=== PATIENT | female | born 1940 | race Caucasian/White ===

== ENCOUNTER 2017-01-10 07:58 | Day surgery (SDC) | payer MEDICARE, OTHER ==
[~2017-01-10 07:58] MED LIST: PROPOFOL INJ 200 MG/20 ML VIAL IV ONE
[2017-01-10 09:43] VITALS: BP 139/75
--- NOTE | 2017-01-10 13:05 | Operative Report ---
Operative Report DATE OF SURGERY: 01/10/17 Operative Report: The risks, benefits and alternatives of the procedure including risks of bleeding, perforation requiring surgery are explained to the patient detail and informed consent is obtained. Patient was taken back to the endoscopy suite and placed in the left, lateral decubital position. Timeout was called. Propofol medications administered. A rectal examination was done which did not reveal any masses, tears or fissures. An Olympus video scope was inserted into the patient's rectum. The scope was then carefully guided all the way to the cecum. The cecum was identified by the usual anatomical landmarks including the ileocecal valve as well as the appendiceal office. Prep was good. Photodocumentation was obtained. The scope was then sequentially pulled back via the various segments of the colon including the ascending colon, hepatic flexure, transverse colon, splenic flexure, descending colon and finally to the rectosigmoid portions of the colon. Retroflexion maneuver was performed. The risks benefits and alternatives of the procedure explained to the patient in detail and informed consent is obtained. A GIF Olympus video scope was inserted into the patient's mouth and hypopharynx, the esophagus is identified intubated and insufflated, the scope was then advanced through the esophagus stomach and duodenum, retroflexion maneuver is done, the esophagus stomach and first and second portions of the duodenum examined PREOPERATIVE DIAGNOSIS: Melena or dark stool. Change in bowel habits POSTOPERATIVE DIAGNOSIS: Dark bilious material noted in the colon noted and stop green in color. 2 colon polyps that I removed via snare polypectomy. 1 in the descending colon and the other in the hepatic flexure area. Diverticulosis. Internal hemorrhoids. Gastritis status post biopsy rule out Helicobacter pylori OPERATION: Colonoscopy with snare polypectomy. EGD with biopsy SURGEON: DONNA SHIN ANESTHESIA: LMAC TISSUE REMOVED OR ALTERED: As noted above. COMPLICATIONS: None. ESTIMATED BLOOD LOSS: None. INTRAOPERATIVE FINDINGS: As described above. PROCEDURE: Patient tolerated the procedure well. No immediate postprocedure complications are noted. Patient discharged in good condition. Discharge date 01/10/2017. Discharge diet: Regular. Discharge activity: Regular. 2-3 week follow-up to discuss findings. Patient is instructed to call the office or proceed to the emergency room should there be any further problems or questions. We will wait on pathology. 5 year surveillance colonoscopy.
== END 2017-01-10 09:40 | disposition home or self-care (01) ==
LOC: END 07:58
PROVIDERS: ATTEND Internal Medicine Gastroenterology
PROC: 0DBL8ZX Excision of Transverse Colon, Via Natural or Artificial Opening Endoscopic, Diagnostic (ICD-10-PCS; 2017-01-10)
PROC: 0DB68ZX Excision of Stomach, Via Natural or Artificial Opening Endoscopic, Diagnostic (ICD-10-PCS; principal; 2017-01-10 08:30)
PROC: 0DBK8ZX Excision of Ascending Colon, Via Natural or Artificial Opening Endoscopic, Diagnostic (ICD-10-PCS; 2017-01-10 08:30)
DX: K57.30 Diverticulosis of large intestine without perforation or abscess without bleeding (principal); K64.8 Other hemorrhoids; K29.50 Unspecified chronic gastritis without bleeding; D12.2 Benign neoplasm of ascending colon; D12.3 Benign neoplasm of transverse colon; K92.1 Melena; E78.00 Pure hypercholesterolemia, unspecified; I12.9 Hypertensive chronic kidney disease with stage 1 through stage 4 chronic kidney disease, or unspecified chronic kidney disease; E11.22 Type 2 diabetes mellitus with diabetic chronic kidney disease; N18.3 Chronic kidney disease, stage 3 (moderate); M19.90 Unspecified osteoarthritis, unspecified site; Z79.82 Long term (current) use of aspirin; Z79.899 Other long term (current) drug therapy
CPT/HCPCS: 43239; 45385; 88305 ×2; J2704; 740

== ENCOUNTER 2017-01-12 13:06 | Emergency (ER) | payer MEDICARE, OTHER ==
--- NOTE | 2017-01-12 13:38 | ER Document Report ---
ED Medical Screen (RME) - General Chief Complaint: Abdominal Pain Stated Complaint: ABDOMINAL PAIN Time Seen by Provider: 01/12/17 13:33 Mode of Arrival: Wheelchair Information source: Patient Notes: 76 yo female with constant sharp left flank pain for 3 weeks that radiates to front and across to the right back., Nothing makes it worse or better. EGD and colonoscopy dr. stokes tuesday or this week. Pain is sharper than the original dull pain. Hx stage 3 renal disease, kidney stone, diverticulitis seen on colonoscopy (no antibiotics), gastritis, arthritis, bursitis. [facility] October for hypertension, dx a fib, CHF, hematoma left abdomen from the anticoagulant shots. TRAVEL OUTSIDE OF THE [place] IN LAST 30 DAYS: No - Related Data Allergies/Adverse Reactions: sulfamethoxazole [From Bactrim] Allergy (Severe, Verified 01/12/17 13:10) HIVES, RASH trimethoprim [From Bactrim] Allergy (Severe, Verified 01/12/17 13:10) HIVES, RASH amoxicillin [From Augmentin] Allergy (Intermediate, Verified 01/12/17 13:10) Hives amoxicillin trihydrate [From Augmentin] Allergy (Intermediate, Verified 13:10) Nausea clavulanic acid [From Augmentin] Allergy (Intermediate, Verified 01/12/17 13:10) Hives doxycycline [Doxycycline] Allergy (Intermediate, Verified 01/12/17 13:10) HIVES, RASHES levofloxacin [From Levaquin] Allergy (Intermediate, Verified 01/12/17 13:10) Hives morphine [Morphine] Allergy (Intermediate, Verified 01/12/17 13:10) Hallucinations Potassium Clavulanate * [From Augmentin] Allergy (Intermediate, Verified 13:10) Nausea NSAIDS (Non-Steroidal Anti-Inflamma [Nsaids] Allergy (Mild, Verified 01/12/17 13 :10) Hepatic dysfunction erythromycin lactobionate [From Erythrocin] Adverse Reaction (Severe, Verified 01/12/17 13:10) FLU LIKE SYMPTOMS imipramine HCl [From Tofranil] Adverse Reaction (Intermediate, Verified 13:10) HEARTRACE codeine [Codeine] Adverse Reaction (Mild, Verified 01/12/17 13:10) "DOESN'T FEEL RIGHT" Past Medical History - Past Medical History Cardiac Medical History: Reports: Hx Coronary Artery Disease - A FIB , Hx Hypertension Denies: Hx Heart Attack Pulmonary Medical History: Denies: Hx Asthma, Hx Bronchitis, Hx COPD, Hx Pneumonia Neurological Medical History: Denies: Hx Cerebrovascular Accident, Hx Seizures Endocrine Medical History: Reports: Hx Diabetes Mellitus Type 2 - "boarderline" no medication Renal/ Medical History: Denies: Hx Peritoneal Dialysis GI Medical History: Reports: Hx Diverticulitis, Hx Gastroesophageal Reflux Disease Musculoskeltal Medical History: Reports Hx Arthritis - GENERALIZED Past Surgical History: Reports: Hx Appendectomy, Hx Kidney (Renal Surgery), Hx Orthopedic Surgery - back, rotator, Hx Tonsillectomy, Hx Tubal Ligation. Denies : Hx Hysterectomy - Immunizations Hx Diphtheria, Pertussis, Tetanus Vaccination: Yes Physical Exam - Vital signs Vitals: Temp Pulse Resp BP Pulse Ox 97.7 F 80 22 H 147/94 H 97 01/12/17 13:13 01/12/17 13:13 01/12/17 13:13 01/12/17 13:13 01/12/17 13:13 Course - Vital Signs Vital signs: Temp Pulse Resp BP Pulse Ox 97.7 F 80 22 H 147/94 H 97 01/12/17 13:13 01/12/17 13:13 01/12/17 13:13 01/12/17 13:13 01/12/17 13:13
[2017-01-12 14:27] LABS: ABSOLUTE BASOPHILS # (AUTO) 0.1 10^3/uL (0.0-0.2); ABSOLUTE EOSINOPHILS # (AUTO) 0.3 10^3/uL (0.0-0.6); ABSOLUTE LYMPHOCYTES (AUTO) 1.1 10^3/uL (0.5-4.7); ABSOLUTE MONOCYTES (AUTO) 0.5 10^3/uL (0.1-1.4); ABSOLUTE NEUT (AUTO) 7.2 10^3/uL (1.7-8.2); BASOPHILS % (AUTO) 0.6 % (0-2); EOSINOPHILS % (AUTO) 2.9 % (0-6); HEMATOCRIT 40.9 % (36.0-47.0); HEMOGLOBIN 13.4 g/dL (12.0-15.5); HGB HCT DIFFERENCE -0.7; LYMPHOCYTES % (AUTO) 12.1 % (13-45); MEAN CORPUSCULAR HEMOGLOBIN 31.6 pg (27.0-33.4); MEAN CORPUSCULAR HGB CONC 32.7 g/dL (32.0-36.0); MEAN CORPUSCULAR VOLUME 97 fl (80-97); MONOCYTES % (AUTO) 5.5 % (3-13); RED BLOOD COUNT 4.23 10^6/uL (3.72-5.28); RED CELL DISTRIBUTION WIDTH 15.6 % (11.5-14.0); SEGMENTED NEUTROPHILS % (AUTO) 78.9 % (42-78); WHITE BLOOD COUNT 9.1 10^3/uL (4.0-10.5)
[2017-01-12 14:39] LABS: APPEARANCE,URINE SLIGHTLY-CLOUDY; BILIRUBIN,URINE NEGATIVE (NEGATIVE); CALCIUM OXALATE CRYSTALS,URINE TOO NUMEROUS TO CNT /HPF; GLUCOSE, URINE NEGATIVE (NEGATIVE); KETONES,URINE NEGATIVE (NEGATIVE); LEUKOCYTE ESTERASE,URINE NEGATIVE (NEGATIVE); NITRITE,URINE NEGATIVE (NEGATIVE); PROTEIN,URINE NEGATIVE (NEGATIVE); URINE SPECIFIC GRAVITY 1.011; UROBILINOGEN,URINE NEGATIVE mg/dL (<2.0)
[2017-01-12 14:43] LABS: ALANINE AMINOTRANSFERASE 28 U/L (9-52); ALBUMIN 3.7 g/dL (3.5-5.0); ALKALINE PHOSPHATASE 103 U/L (38-126); ANION GAP 11 (5-19); ASPARTATE AMINO TRANSFERASE 34 U/L (14-36); BILIRUBIN,DIRECT 0.3 mg/dL (0.0-0.4); BILIRUBIN,TOTAL 0.5 mg/dL (0.2-1.3); BLOOD UREA NITROGEN 9 mg/dL (7-20); CALCIUM 9.9 mg/dL (8.4-10.2); CARBON DIOXIDE 30 mmol/L (22-30); CHLORIDE 103 mmol/L (98-107); CREATINE KINASE 33 U/L (30-135); CREATININE RESULT 0.85 mg/dL (0.52-1.25); GLUCOSE 141 mg/dL (75-110); POTASSIUM 3.1 mmol/L (3.6-5.0); SODIUM 144.4 mmol/L (137-145); TOTAL PROTEIN 6.6 g/dL (6.3-8.2)
[2017-01-12 14:52] LABS: CREATINE KINASE MB 0.48 ng/mL (<4.55)
[2017-01-12 14:54] LABS: TROPONIN I < 0.012 ng/mL
--- NOTE | 2017-01-12 14:59 | ER Document Report ---
ED GI/ - General Chief Complaint: Abdominal Pain Stated Complaint: ABDOMINAL PAIN Time Seen by Provider: 01/12/17 13:33 Mode of Arrival: Wheelchair TRAVEL OUTSIDE OF THE [place] IN LAST 30 DAYS: No - HPI Notes: 01/12/17 15:28 76 yo female with constant sharp left flank pain for approximately 3 weeks that radiates to front and across to the right. Nothing makes it worse or better. EGD and colonoscopy were performed by Dr. farias tuesday or this week. Pain is sharper than the original dull pain now and she has been only using Zantac and Carafate and Dexilant without much improvement. She is not on antibiotics but apparently had some areas concerning for diverticulitis had some biopsies as well as polypectomy done. Admits to loose stools but this is not inconsistent with her irritable bowel syndrome. Furthermore has had some intermittent nausea and vomiting. She has not passing blood anywhere. Hx stage 3 renal disease, kidney stone, diverticulitis seen on colonoscopy (no antibiotics), gastritis, arthritis, bursitis. [facility] October for hypertension, dx a fib, CHF, hematoma left abdomen from the anticoagulant shots. Denies fever. No dysuria. She does have a history of kidney stones. TRAVEL OUTSIDE OF THE [place] IN LAST 30 DAYS: No - Related Data Allergies/Adverse Reactions: sulfamethoxazole [From Bactrim] Allergy (Severe, Verified 01/12/17 13:10) HIVES, RASH trimethoprim [From Bactrim] Allergy (Severe, Verified 01/12/17 13:10) HIVES, RASH amoxicillin [From Augmentin] Allergy (Intermediate, Verified 01/12/17 13:10) Hives amoxicillin trihydrate [From Augmentin] Allergy (Intermediate, Verified 13:10) Nausea clavulanic acid [From Augmentin] Allergy (Intermediate, Verified 01/12/17 13:10) Hives doxycycline [Doxycycline] Allergy (Intermediate, Verified 01/12/17 13:10) HIVES, RASHES levofloxacin [From Levaquin] Allergy (Intermediate, Verified 01/12/17 13:10) Hives morphine [Morphine] Allergy (Intermediate, Verified 01/12/17 13:10) Hallucinations Potassium Clavulanate * [From Augmentin] Allergy (Intermediate, Verified 13:10) Nausea NSAIDS (Non-Steroidal Anti-Inflamma [Nsaids] Allergy (Mild, Verified 01/12/17 13 :10) Hepatic dysfunction erythromycin lactobionate [From Erythrocin] Adverse Reaction (Severe, Verified 01/12/17 13:10) FLU LIKE SYMPTOMS imipramine HCl [From Tofranil] Adverse Reaction (Intermediate, Verified 13:10) HEARTRACE codeine [Codeine] Adverse Reaction (Mild, Verified 01/12/17 13:10) "DOESN'T FEEL RIGHT" Past Medical History - General Information source: Patient - Social History Smoking Status: Unknown if Ever Smoked Family History: Reviewed & Not Pertinent Patient has suicidal ideation: No Patient has homicidal ideation: No - Past Medical History Cardiac Medical History: Reports: Hx Coronary Artery Disease - A FIB , Hx Hypertension Denies: Hx Heart Attack Pulmonary Medical History: Denies: Hx Asthma, Hx Bronchitis, Hx COPD, Hx Pneumonia Neurological Medical History: Denies: Hx Cerebrovascular Accident, Hx Seizures Endocrine Medical History: Reports: Hx Diabetes Mellitus Type 2 - "boarderline" no medication Renal/ Medical History: Denies: Hx Peritoneal Dialysis GI Medical History: Reports: Hx Diverticulitis, Hx Gastroesophageal Reflux Disease Musculoskeltal Medical History: Reports Hx Arthritis - GENERALIZED Past Surgical History: Reports: Hx Appendectomy, Hx Kidney (Renal Surgery), Hx Orthopedic Surgery - back, rotator, Hx Tonsillectomy, Hx Tubal Ligation. Denies : Hx Hysterectomy - Immunizations Hx Diphtheria, Pertussis, Tetanus Vaccination: Yes Review of Systems - Review of Systems -: Yes All other systems reviewed and negative Physical Exam - Vital signs Vitals: Temp Pulse Resp BP Pulse Ox 97.7 F 80 22 H 147/94 H 97 01/12/17 13:13 01/12/17 13:13 01/12/17 13:13 01/12/17 13:13 01/12/17 13:13 - Notes Notes: GENERAL: VS as per nursing doc. Well-appearing, slightly obese, well-nourished and in no acute distress. HEAD: Atraumatic, normocephalic. EYES: Pupils equal round and reactive to light, extraocular movements intact, sclera anicteric, no conjunctival injection or discharge. ENT: Nares patent, oropharynx clear without exudates, moist mucous membranes. NECK: Normal range of motion, supple without lymphadenopathy. LUNGS: Breath sounds clear to auscultation bilaterally and equal. No wheezes rales or rhonchi. HEART: Regular rate and rhythm without murmurs. ABDOMEN: Soft, tenderness extending from the left CVA region to the left mid and left upper quadrant. Less so in the left lower quadrant., normoactive bowel sounds. No guarding, no rebound. No masses appreciated. No [place] sign. BACK: No midline ttp EXTREMITIES: Normal range of motion NEUROLOGICAL: Cranial nerves grossly intact. Normal speech. Normal sensory and motor exams. No gross cerebellar abnormalities. PSYCH: Normal mood, normal affect. SKIN: Warm, dry, normal turgor, no lesions noted. Course - Re-evaluation Re-evalutation: 01/12/17 17:31 Reviewed the recent pathology which showed some mild gastric mucosa chronic inflammatory changes and tubular adenoma. Postoperative diagnosis showed gastritis, hiatal hernia, diverticulosis, polyps, internal hemorrhoids. 01/12/17 18:[address] Farias about the findings. Her white count normal, small areas of air in diverticula but no obvious diverticulitis or perforation. I discussed findings with the patient as well. Clinically, she does not appear to have a perforation but we discussed warning signs to watch for. We agreed to put the patient on Levsin which she will try and Zofran. He will contact her tomorrow to see how she is doing and arrange follow-up and further course of action. - Vital Signs Vital signs: Temp Pulse Resp BP Pulse Ox 97.7 F 75 15 156/83 H 100 01/12/17 13:13 01/12/17 15:10 01/12/17 17:01 01/12/17 17:01 01/12/17 17:01 - Laboratory Result Diagrams: 01/12/17 14:10 01/12/17 14:10 Laboratory results interpreted by me: 01/12/17 01/12/17 14:10 14:10 RDW 15.6 H Seg Neutrophils % 78.9 H Lymphocytes % 12.1 L Potassium 3.1 L Glucose 141 H - Diagnostic Test Radiology reviewed: Image reviewed, Reports reviewed - EKG Interpretation by Co EKG shows normal: Sinus rhythm Rate: Normal - Rate 73, there are fairly diffuse ST and T abnormalities in the anterior and inferior leads, this appears new compared to July 2013. Discharge - Discharge Clinical Impression: Abdominal pain, Flank pain, Hypokalemia Condition: Good Disposition: HOME, SELF-CARE Instructions: Abdominal Pain ([facility]), Hypokalemia ([facility]) Prescriptions: Hyoscyamine Sulfate [Levsin 0.125 Tablet] 0.125 - 0.25 mg PO Q6HP PRN #12 tablet PRN Reason: For Abdominal Pain Ondansetron [Zofran Odt 4 mg Tablet] 1 - 2 tab PO Q4H PRN #15 tab.rapdis PRN Reason: For Nausea/Vomiting
[2017-01-12] MEDS ORDERED: HYDROMORPHONE HCL INJ/PF 2 MG/ML AMPULE IV ONE (15:25)
[2017-01-12] MEDS ORDERED: ONDANSETRON HCL INJ/PF 4 MG/2 ML SDV IV ONE (15:26)
--- NOTE | 2017-01-12 15:40 | RADIOLOGY REPORT (SQ) ---
EXAM DESCRIPTION: CT ABD/PELVIS NO ORAL OR IV COMPLETED DATE/TIME: 01/12/2017 3:03 pm REASON FOR STUDY: left flank pain, recent coloncoscopy COMPARISON: 05/20/2014 TECHNIQUE: CT scan of the abdomen and pelvis performed without intravenous or oral contrast. Images reviewed with lung, soft tissue, and bone windows. Reconstructed coronal and sagittal MPR images revi ewed. All images stored on PACS. All CT scanners at this facility use dose modulation, iterative reconstruction, and/or weight based d osing when appropriate to reduce radiation dose to as low as reasonably achievable (ALARA). [facility]: Dose Right [facility]: CareDose [facility]: Dose Right [facility]: Teradose 4D [facility]: [employer] RADIATION DOSE: Up-to-date CT equipment and radiation dose reduction techniques were employed. CTDIv ol: 19.5 mGy. DLP: 1048 mGy-cm.mGy. LIMITATIONS: None. FINDINGS: LOWER CHEST: No significant findings. No nodules or infiltrates. NON-CONTRASTED LIVER, SPLEEN, ADRENALS: Evaluation limited by lack of IV contrast. No identified sign ificant masses. PANCREAS: There is considerable fatty replacement of the pancreas. No mass or inflammation is presen t. GALLBLADDER: The gallbladder is contracted. There are no stones. RIGHT KIDNEY AND URETER: No suspicious masses. A cortical cyst is present. No significant calcific ations. No hydronephrosis or hydroureter. LEFT KIDNEY AND URETER: No suspicious masses. A cortical cyst is present. There is cortical thinnin g. No significant calcifications. No hydronephrosis or hydroureter. AORTA AND RETROPERITONEUM: No aneurysm. No retroperitoneal masses or adenopathy. BOWEL AND PERITONEAL CAVITY: Scattered diverticula arise from the descending colon. Numerous sigmoid diverticula are present. No acute inflammatory changes are seen. No definite extraluminal air is s een. APPENDIX: Surgically absent. PELVIS, BLADDER, AND ABDOMINAL WALL:The urinary bladder is incompletely filled but otherwise unremark able. BONES: Old right rib fractures are present. Surgical changes are seen in the lower lumbar spine. Os teopenia. OTHER: No other significant finding. IMPRESSION: No free air is appreciated. The presence of numerous diverticula makes it difficult to completely rule out a small extra- luminal bubble of air. Therefore continued observation and follow -up subsequent CT is recommended if clinically indicated. TECHNICAL DOCUMENTATION: JOB ID: [id number] Quality ID # [id number]: Final reports with documentation of one or more dose reduction techniques (e.g., Au tomated exposure control, adjustment of the mA and/or kV according to patient size, use of iterative reconstruction technique) 2010 [employer]- All Rights Reserved
[2017-01-12] MEDS ORDERED: HYOSCYAMINE SULFATE 0.125 MG TABLET PO ONE (18:09)
[2017-01-12 19:01] VITALS: BP 183/84
--- NOTE | 2017-01-14 05:57 | EKG REPORT ---
SEVERITY:- BORDERLINE ECG - SINUS RHYTHM BORDERLINE T ABNORMALITIES, INFERIOR LEADS : Confirmed by: Shireen Macias MD 14-Jan-2017 05:56:07
== END 2017-01-12 18:40 | disposition home or self-care (01) ==
LOC: ER 13:06
DX: E87.6 Hypokalemia (principal); R10.9 Unspecified abdominal pain; N28.9 Disorder of kidney and ureter, unspecified; R19.7 Diarrhea, unspecified; I48.91 Unspecified atrial fibrillation; I50.9 Heart failure, unspecified
CPT/HCPCS: 93005; 99284; 96374; 96375; 36415; 87040; 87086; 82553; 82550; 83605; 85025; 80053; 81001; 84484; 74176; 93010; A9270; J1170; J2405; J3490

== ENCOUNTER → 2017-03-08 | Outpatient (CLI) | payer MEDICARE, OTHER ==
--- NOTE | 2017-03-08 16:39 | RADIOLOGY REPORT (SQ) ---
EXAM DESCRIPTION: KUB COMPLETED DATE/TIME: 03/08/2017 11:45 am REASON FOR STUDY: LEFT UPPER QUADRANT PAIN R10.12 LEFT UPPER QUADRANT PAIN COMPARISON: MRI abdomen 10/30/2014 CT abdomen pelvis 01/12/2017 NUMBER OF VIEWS: One view. TECHNIQUE: Supine radiographic image of the abdomen acquired. LIMITATIONS: None. FINDINGS: BOWEL GAS PATTERN: Normal bowel gas pattern. No dilated loops. CALCIFICATIONS: No suspicious calcifications. SOFT TISSUES: No gross mass or suggestion of organomegaly. HARDWARE: Lumbar fusion at L4-5 BONES: Osteopenic. No acute fracture OTHER: No other significant finding. IMPRESSION: NO RADIOGRAPHIC EVIDENCE FOR ACUTE ABDOMINAL DISEASE. TECHNICAL DOCUMENTATION: JOB ID: [id number] [employer]- All Rights Reserved
== END ==
LOC: OD 11:06
PROVIDERS: ATTEND Physician Assistant
DX: R10.12 Left upper quadrant pain (principal)
CPT/HCPCS: 74000

== ENCOUNTER → 2017-04-19 | Outpatient (CLI) | payer MEDICARE, OTHER ==
--- NOTE | 2017-04-19 11:12 | RADIOLOGY REPORT (SQ) ---
EXAM DESCRIPTION: CT ABD/PELVIS ORAL ONLY COMPLETED DATE/TIME: 04/19/2017 9:52 am REASON FOR STUDY: ABDOMINAL PAIN R10.9 UNSPECIFIED ABDOMINAL PAIN COMPARISON: 01/12/2017 TECHNIQUE: CT scan of the abdomen and pelvis performed without intravenous contrast. Oral contrast was given. Images reviewed with lung, soft tissue, and bone windows. Reconstructed coronal and sagit angel MPR images reviewed. All images stored on PACS. All CT scanners at this facility use dose modulation, iterative reconstruction, and/or weight based d osing when appropriate to reduce radiation dose to as low as reasonably achievable (ALARA). [facility]: Dose Right [facility]: CareDose [facility]: Dose Right [facility]: Teradose 4D [facility]: Smart [employer] RADIATION DOSE: Up-to-date CT equipment and radiation dose reduction techniques were employed. CTDIv ol: 26.2 mGy. DLP: 1332 mGy-cm.mGy. LIMITATIONS: None. FINDINGS: LOWER CHEST: No significant findings. No nodules or infiltrates. NON-CONTRASTED LIVER, SPLEEN, ADRENALS: The liver is unremarkable. There is a stable cystic lesion i n the spleen. There is no adrenal mass. PANCREAS: No masses. No peripancreatic inflammatory changes. GALLBLADDER: No identified stones by CT criteria. No inflammatory changes to suggest cholecystitis. RIGHT KIDNEY AND URETER: No suspicious masses. There is cortical thinning. A cyst is present. No significant calcifications. No hydronephrosis or hydroureter. LEFT KIDNEY AND URETER: No suspicious masses. Cysts are present. There is cortical thinning. No s ignificant calcifications. No hydronephrosis or hydroureter. AORTA AND RETROPERITONEUM: No aneurysm. No retroperitoneal masses or adenopathy. BOWEL AND PERITONEAL CAVITY: Diverticula arise from throughout the colon but most numerous lead in th e descending and sigmoid colon. There are no acute inflammatory changes. There is no free air. APPENDIX: Surgically absent. PELVIS, BLADDER, AND ABDOMINAL WALL:The uterus is normal for age. There is incomplete filling of the bladder but the bladder is grossly normal. There is no free fluid in the pelvis. BONES: Posterior rods are present at L4-5 with screws through the pedicles. Old right rib fractures are present. No osseous lesions are seen. OTHER: No other significant finding. IMPRESSION: 1. Diverticulosis coli with no evidence of acute diverticulitis. 2. There are chronic changes in both kidneys. 3. There are no findings that explain the patient's pain. Other findings as described. COMMENT: Quality ID # [id number]: Final reports with documentation of one or more dose reduction techniques (e.g., Automated exposure control, adjustment of the mA and/or kV according to patient size, use of iterative reconstruction technique) TECHNICAL DOCUMENTATION: JOB ID: [id number] [employer]- All Rights Reserved
== END ==
LOC: RAD 09:39
PROVIDERS: ATTEND Surgery
DX: R10.9 Unspecified abdominal pain (principal); K57.30 Diverticulosis of large intestine without perforation or abscess without bleeding
CPT/HCPCS: 74176

== ENCOUNTER 2017-09-01 10:04 | Emergency (ER) | payer MEDICARE, OTHER ==
--- NOTE | 2017-09-01 10:39 | ER Document Report ---
ED Fall - General Chief Complaint: Fall Stated Complaint: FELL // LT SIDE PAIN Time Seen by Provider: 09/01/17 10:21 Information source: Patient, Relative Notes: Patient states that she fell 6 days ago from a standing position. Patient is uncertain what caused her to fall but states she has been falling more recently. Patient states she has fallen about 4 times in the past month. Patient denies any head injury or loss of consciousness. Patient states she landed on her left lateral side. Patient states since the fall she has had continued left breast pain that radiates through her chest to her left upper back area. Patient states initially she had left jaw pain but that has resolved now. Patient denies any difficulty breathing, cough or cold symptoms. Patient states that she did land on her cane which bruised her left upper arm. Patient states she did take her aspirin today as well as her hydrocodone for pain relief. TRAVEL OUTSIDE OF THE [place] IN LAST 30 DAYS: No - HPI Occurred: Last week Where: Outdoors Context: Fell from standing Associated symptoms: None. denies: Lost consciousness, Difficulty walking, Became dizzy/fainted Location of injury/pain: Chest, Upper extremity Quality of pain: Achy Pain Level: 3 - Related data Allergies/Adverse Reactions: sulfamethoxazole [From Bactrim] Allergy (Severe, Verified 01/12/17 13:10) HIVES, RASH trimethoprim [From Bactrim] Allergy (Severe, Verified 01/12/17 13:10) HIVES, RASH amoxicillin [From Augmentin] Allergy (Intermediate, Verified 01/12/17 13:10) Hives amoxicillin trihydrate [From Augmentin] Allergy (Intermediate, Verified 13:10) Nausea clavulanic acid [From Augmentin] Allergy (Intermediate, Verified 01/12/17 13:10) Hives doxycycline [Doxycycline] Allergy (Intermediate, Verified 01/12/17 13:10) HIVES, RASHES levofloxacin [From Levaquin] Allergy (Intermediate, Verified 01/12/17 13:10) Hives morphine [Morphine] Allergy (Intermediate, Verified 01/12/17 13:10) Hallucinations Potassium Clavulanate * [From Augmentin] Allergy (Intermediate, Verified 13:10) Nausea NSAIDS (Non-Steroidal Anti-Inflamma [Nsaids] Allergy (Mild, Verified 01/12/17 13 :10) Hepatic dysfunction erythromycin lactobionate [From Erythrocin] Adverse Reaction (Severe, Verified 01/12/17 13:10) FLU LIKE SYMPTOMS imipramine HCl [From Tofranil] Adverse Reaction (Intermediate, Verified 13:10) HEARTRACE codeine [Codeine] Adverse Reaction (Mild, Verified 01/12/17 13:10) "DOESN'T FEEL RIGHT" Past Medical History - General Information source: Patient, Relative - Social History Smoking Status: Never Smoker Frequency of alcohol use: None Drug Abuse: None Occupation: None Lives with: Family Family History: Reviewed & Not Pertinent - Past Medical History Cardiac Medical History: Reports: Hx Atrial Fibrillation, Hx Coronary Artery Disease - A FIB , Hx Hypertension Denies: Hx Heart Attack Pulmonary Medical History: Denies: Hx Asthma, Hx Bronchitis, Hx COPD, Hx Pneumonia Neurological Medical History: Denies: Hx Cerebrovascular Accident, Hx Seizures Endocrine Medical History: Reports: Hx Diabetes Mellitus Type 2 - "boarderline" no medication Renal/ Medical History: Denies: Hx Peritoneal Dialysis GI Medical History: Reports: Hx Diverticulitis, Hx Gastroesophageal Reflux Disease Musculoskeltal Medical History: Reports Hx Arthritis - GENERALIZED Past Surgical History: Reports: Hx Appendectomy, Hx Kidney (Renal Surgery), Hx Orthopedic Surgery - back, rotator, Hx Tonsillectomy, Hx Tubal Ligation. Denies : Hx Hysterectomy - Immunizations Hx Diphtheria, Pertussis, Tetanus Vaccination: Yes Review of Systems - Review of Systems Constitutional: No symptoms reported EENT: No symptoms reported Cardiovascular: Chest pain. denies: Palpitations, Syncope, Dizziness, Lightheaded Respiratory: No symptoms reported. denies: Cough, Short of breath Gastrointestinal: No symptoms reported. denies: Abdominal pain, Diarrhea, Nausea, Vomiting Genitourinary: No symptoms reported. denies: Dysuria, Flank pain Female Genitourinary: No symptoms reported Musculoskeletal: Back pain - chronic, Muscle pain - left upper arm. denies: Joint pain Skin: Change in color - bruise to LUE Hematologic/Lymphatic: No symptoms reported Neurological/Psychological: No symptoms reported. denies: Confusion, Lost consciousness, Headaches Physical Exam - Vital signs Vitals: Temp Pulse Resp BP Pulse Ox 98.7 F 72 18 177/82 H 100 09/01/17 10:18 09/01/17 10:18 09/01/17 10:18 09/01/17 10:18 09/01/17 10:18 - General General appearance: Appears well, Alert In distress: None - HEENT Head: Normocephalic, Atraumatic Eyes: Normal Nasal: Normal Mouth/Lips: Normal Mucous membranes: Normal Neck: Normal, Supple. No: Lymphadenopathy - Respiratory Respiratory status: No respiratory distress Chest status: Tender, Pain with deep breathing Breath sounds: Normal Chest palpation: Tender. No: Subcutaneous emphysema, Ecchymosis - Cardiovascular Rhythm: Regular Heart sounds: S1 appreciated, S2 appreciated Murmur: No - Abdominal Inspection: Obese Distension: No distension Bowel sounds: Normal Tenderness: Nontender Organomegaly: No organomegaly - Back Back: Normal, Nontender. No: CVA tenderness, Vertebra tenderness - Extremities General upper extremity: Tender, Normal ROM General lower extremity: Normal inspection, Normal ROM Shoulder: Normal, Nontender Arm: Tender - Left upper arm left upper arm tenderness with ecchymosis of her middle third, Ecchymosis Elbow: Normal, Nontender Forearm: Normal, Nontender Wrist: Normal, Nontender Hand: Normal, Nontender Hip: Normal, Nontender Thigh: Normal, Nontender Knee: Normal, Nontender - Neurological Neuro grossly intact: Yes Orientation: AAOx4 Clark Coma Scale Eye Opening: Spontaneous Antonette Coma Scale Verbal: Oriented Clark Coma Scale Motor: Obeys Commands Clark Coma Scale Total: 15 - Psychological Associated symptoms: Normal affect, Normal mood - Skin Skin Temperature: Warm Skin Moisture: Dry Skin Color: Ecchymosis - Left upper arm Course - Re-evaluation Re-evalutation: 09/01/17 12:[address] Aldana regarding patient presentation, reviewed her diagnostic test results and laboratory findings. Agrees with plan for CT imaging of the chest. 09/01/17 1547 Consulted with radiology regarding focal lesion noted on chest x-ray. Dr. Lynch will call back after he has had a look at the previous chest film 09/01/17 16:[address] Lynch, states that patient has old rib fractures but has no focal lesion noted on CT scan. 09/01/17 16:12 The patient has atypical chest pain as the patient's chest pain is not suggestive of pulmonary embolus, cardiac ischemia, aortic dissection, or other serious etiology. Given the extremely low risk of these diagnoses for the test in evaluation for these possibilities does not appear to be indicated at this time. Patient has been instructed to return if the symptoms worsen or change in any way. Patient advised of CT findings of thyroid nodule as well as renal cysts. Patient encouraged to follow-up with her primary doctor for further evaluation of these findings. Patient does take [place] at home for pain and is advised to take her medication as previously prescribed. Patient advised of her elevated potassium level. Patient states that her doctor had her taking potassium supplements twice a day. Patient states she will call her doctor and only take 1 supplement once a day. Patient states that she was already aware that she has renal cysts but will follow up with her primary doctor about the thyroid nodule. - Vital Signs Vital signs: Temp Pulse Resp BP Pulse Ox 99.5 F 77 17 151/75 H 98 09/01/17 15:57 09/01/17 15:57 09/01/17 15:57 09/01/17 15:57 09/01/17 15:57 - Laboratory Result Diagrams: 09/01/17 11:42 09/01/17 11:42 Laboratory results interpreted by me: 09/01/17 09/01/17 11:42 11:42 WBC 11.1 H RDW 16.3 H Seg Neutrophils % 81.6 H Lymphocytes % 10.8 L Absolute Neutrophils 9.1 H Potassium 5.2 H Est GFR (Non-Af Amer) 52 L Calcium 10.8 H Direct Bilirubin 0.6 H AST 46 H Labs- Entire Visit 09/01/17 09/01/17 09/01/17 11:42 11:42 11:42 WBC 11.1 H RBC 4.44 Hgb 13.7 Hct 41.5 MCV 94 MCH 30.8 MCHC 32.9 RDW 16.3 H Plt Count 259 Seg Neutrophils % 81.6 H Lymphocytes % 10.8 L Monocytes % 4.5 Eosinophils % 2.1 Basophils % 1.0 Absolute Neutrophils 9.1 H Absolute Lymphocytes 1.2 Absolute Monocytes 0.5 Absolute Eosinophils 0.2 Absolute Basophils 0.1 Sodium 142.2 Potassium 5.2 H Chloride 106 Carbon Dioxide 24 Anion Gap 12 BUN 15 Creatinine 1.04 Est GFR ( Amer) > 60 Est GFR (Non-Af Amer) 52 L Glucose 101 Calcium 10.8 H Magnesium 1.8 Total Bilirubin 0.7 Direct Bilirubin 0.6 H Neonat Total Bilirubin Not Reportable Neonat Direct Bilirubin Not Reportable Neonat Indirect Bili Not Reportable AST 46 H ALT 41 Alkaline Phosphatase 107 Creatine Kinase 33 CK-MB (CK-2) 0.57 Troponin I < 0.012 Total Protein 7.5 Albumin 4.4 Urine Color Urine Appearance Urine pH Ur Specific Draper Urine Protein Urine Glucose (UA) Urine Ketones Urine Blood Urine Nitrite Urine Bilirubin Urine Urobilinogen Ur Leukocyte Esterase Urine WBC (Auto) Squamous Epi Cells Auto U Non-Squamous Epis Auto Urine Mucus (Auto) Urine Ascorbic Acid 09/01/17 12:50 WBC RBC Hgb Hct MCV MCH MCHC RDW Plt Count Seg Neutrophils % Lymphocytes % Monocytes % Eosinophils % Basophils % Absolute Neutrophils Absolute Lymphocytes Absolute Monocytes Absolute Eosinophils Absolute Basophils Sodium Potassium Chloride Carbon Dioxide Anion Gap BUN Creatinine Est GFR ( Amer) Est GFR (Non-Af Amer) Glucose Calcium Magnesium Total Bilirubin Direct Bilirubin Neonat Total Bilirubin Neonat Direct Bilirubin Neonat Indirect Bili AST ALT Alkaline Phosphatase Creatine Kinase CK-MB (CK-2) Troponin I Total Protein Albumin Urine Color STRAW Urine Appearance CLEAR Urine pH 6.0 Ur Specific Draper 1.004 Urine Protein NEGATIVE Urine Glucose (UA) NEGATIVE Urine Ketones NEGATIVE Urine Blood NEGATIVE Urine Nitrite NEGATIVE Urine Bilirubin NEGATIVE Urine Urobilinogen NEGATIVE Ur Leukocyte Esterase NEGATIVE Urine WBC (Auto) 3 Squamous Epi Cells Auto <1 U Non-Squamous Epis Auto 4 Urine Mucus (Auto) RARE Urine Ascorbic Acid NEGATIVE - Diagnostic Test Radiology reviewed: Reports reviewed Discharge - Discharge Clinical Impression: Renal cyst, Thyroid nodule, Hx of essential hypertension Chest pain Qualifiers: Chest pain type: unspecified Qualified Code(s): R07.9 - Chest pain, unspecified Contusion of arm, left Qualifiers: Encounter type: initial encounter Qualified Code(s): S40.022A - Contusion of left upper arm, initial encounter Fall Qualifiers: Encounter type: initial encounter Qualified Code(s): W19.XXXA - Unspecified fall, initial encounter Condition: Stable Disposition: HOME, SELF-CARE Instructions: Chest Wall Pain ([facility]), Contusion ([facility]), Chest Pain of Unclear Cause ([facility]) Additional Instructions: Return immediately for any new or worsening symptoms Followup with your primary care provider, call tomorrow to make a followup appointment Your CAT scan showed that you have a thyroid nodule as well as cysts within your kidneys. Follow-up with your primary doctor for further evaluation of these findings. Forms: Elevated Blood Pressure Referrals: BUNDLE,LEBRON, PA-C [Primary Care Provider] - Follow up tomorrow
--- NOTE | 2017-09-01 11:12 | RADIOLOGY REPORT (SQ) ---
EXAM DESCRIPTION: CHEST PA/LAT COMPLETED DATE/TIME: 09/01/2017 10:55 am REASON FOR STUDY: fall, left side cp COMPARISON: None. EXAM PARAMETERS: NUMBER OF VIEWS: two views TECHNIQUE: Digital Frontal and Lateral radiographic views of the chest acquired. RADIATION DOSE: NA LIMITATIONS: none FINDINGS: LUNGS AND PLEURA: There is somewhat ill-defined increased density in the right mid lung fi eld which could represent a focal pneumonic infiltrate, atelectatic changes, or scarring. Other etio logies cannot be excluded and followup is recommended. Remaining lung reyna are clear. No pleural effusions are identified. MEDIASTINUM AND HILAR STRUCTURES: No masses or contour abnormalities. HEART AND VASCULAR STRUCTURES: Heart normal size. No evidence for failure. BONES: No acute findings. HARDWARE: None in the chest. OTHER: No other significant finding. IMPRESSION: Focal density projected in the right mid lung field as noted above. Differential possib ilities are as noted above. Clinical correlation and followup is recommended. Other findings as not ed above TECHNICAL DOCUMENTATION: JOB ID: [id number] [employer]- All Rights Reserved Reading location - IP/workstation name: [email or web address]
--- NOTE | 2017-09-01 11:13 | RADIOLOGY REPORT (SQ) ---
EXAM DESCRIPTION: HUMERUS LEFT COMPLETED DATE/TIME: 09/01/2017 10:56 am REASON FOR STUDY: fall, arm injury COMPARISON: None. NUMBER OF VIEWS: Two views. TECHNIQUE: Two radiographic images were acquired of the left humerus to include elbow and shoulder i n at least one projection. LIMITATIONS: None. FINDINGS: MINERALIZATION: Normal. BONES: No acute fracture or dislocation. No worrisome bone lesions. SOFT TISSUES: No obvious swelling or foreign body. OTHER: No other significant finding. IMPRESSION: NEGATIVE STUDY OF THE LEFT HUMERUS. NO RADIOGRAPHIC EVIDENCE OF ACUTE INJURY. TECHNICAL DOCUMENTATION: JOB ID: [id number] [employer]- All Rights Reserved Reading location - IP/workstation name: [email or web address] [id number]
[2017-09-01 11:50] LABS: ABSOLUTE BASOPHILS # (AUTO) 0.1 10^3/uL (0.0-0.2); ABSOLUTE EOSINOPHILS # (AUTO) 0.2 10^3/uL (0.0-0.6); ABSOLUTE LYMPHOCYTES (AUTO) 1.2 10^3/uL (0.5-4.7); ABSOLUTE MONOCYTES (AUTO) 0.5 10^3/uL (0.1-1.4); ABSOLUTE NEUT (AUTO) 9.1 10^3/uL (1.7-8.2); EOSINOPHILS % (AUTO) 2.1 % (0-6); HEMATOCRIT 41.5 % (36.0-47.0); HEMOGLOBIN 13.7 g/dL (12.0-15.5); LYMPHOCYTES % (AUTO) 10.8 % (13-45); MEAN CORPUSCULAR HEMOGLOBIN 30.8 pg (27.0-33.4); MEAN CORPUSCULAR HGB CONC 32.9 g/dL (32.0-36.0); MEAN CORPUSCULAR VOLUME 94 fl (80-97); MONOCYTES % (AUTO) 4.5 % (3-13); PLATELET COUNT 259 10^3/uL (150-450); RED BLOOD COUNT 4.44 10^6/uL (3.72-5.28); RED CELL DISTRIBUTION WIDTH 16.3 % (11.5-14.0); SEGMENTED NEUTROPHILS % (AUTO) 81.6 % (42-78); TOTAL CELLS COUNTED % (AUTO) 100 %; WHITE BLOOD COUNT 11.1 10^3/uL (4.0-10.5)
[2017-09-01 12:11] LABS: ALANINE AMINOTRANSFERASE 41 U/L (9-52); ALBUMIN 4.4 g/dL (3.5-5.0); ALKALINE PHOSPHATASE 107 U/L (38-126); ANION GAP 12 (5-19); ASPARTATE AMINO TRANSFERASE 46 U/L (14-36); BILIRUBIN,DIRECT 0.6 mg/dL (0.0-0.4); BILIRUBIN,TOTAL 0.7 mg/dL (0.2-1.3); BLOOD UREA NITROGEN 15 mg/dL (7-20); CALCIUM 10.8 mg/dL (8.4-10.2); CARBON DIOXIDE 24 mmol/L (22-30); CHLORIDE 106 mmol/L (98-107); CREATINE KINASE 33 U/L (30-135); GLUCOSE 101 mg/dL (75-110); POTASSIUM 5.2 mmol/L (3.6-5.0); SODIUM 142.2 mmol/L (137-145); TOTAL PROTEIN 7.5 g/dL (6.3-8.2)
[2017-09-01 12:22] LABS: CREATINE KINASE MB 0.57 ng/mL (<4.55); TROPONIN I < 0.012 ng/mL
[2017-09-01 13:43] LABS: APPEARANCE,URINE CLEAR; BILIRUBIN,URINE NEGATIVE (NEGATIVE); COLOR,URINE STRAW; GLUCOSE, URINE NEGATIVE (NEGATIVE); KETONES,URINE NEGATIVE (NEGATIVE); LEUKOCYTE ESTERASE,URINE NEGATIVE (NEGATIVE); NITRITE,URINE NEGATIVE (NEGATIVE); PROTEIN,URINE NEGATIVE (NEGATIVE); URINE SPECIFIC GRAVITY 1.004; UROBILINOGEN,URINE NEGATIVE mg/dL (<2.0)
--- NOTE | 2017-09-01 15:18 | RADIOLOGY REPORT (SQ) ---
EXAM DESCRIPTION: CTA CHEST COMPLETED DATE/TIME: 09/01/2017 3:00 pm REASON FOR STUDY: fall, L side cp COMPARISON: None. TECHNIQUE: CT scan of the chest performed using helical scanning technique with dynamic intravenous contrast injection. Images reviewed with lung, soft tissue and bone windows. Reconstructed coronal and sagittal MPR images reviewed. Additional 3 dimensional post-processing performed to develop Maximal Intensity Projection images (MA P). All images stored on PACS. All CT scanners at this facility use dose modulation, iterative reconstruction, and/or weight based d osing when appropriate to reduce radiation dose to as low as reasonably achievable (ALARA). [facility]: Dose Right [facility]: CareDose [facility]: Dose Right [facility]: Teradose 4D [facility]: Websense CONTRAST TYPE AND DOSE: contrast/concentration: Isovue 370.00 mg/ml; Total Contrast Delivered: 79.0 ml; Total Saline Delivered: 80.1 ml Contrast bolus optimized for the pulmonary arteries. Not diagnostic for the aorta. RENAL FUNCTION: BUN 15 creatinine 1.04 RADIATION DOSE: CT Rad equipment meets quality standard of care and radiation dose reduction technFractal Analytics ues were employed. CTDIvol: 22.8 - 33.1 mGy. DLP: 877 mGy-cm. . LIMITATIONS: None. FINDINGS: LUNGS AND PLEURA: No masses, infiltrates, pneumothorax. No pleural effusions, calcificati ons. AORTA AND GREAT VESSELS: No aneurysm. Contrast bolus not optimized for the aorta. HEART: No pericardial effusion. Moderate to marked coronary artery calcifications. PULMONARY ARTERIES: No emboli visualized in the main pulmonary arteries or the segmental branches. HILAR AND MEDIASTINAL STRUCTURES: No identified masses or abnormal nodes. HARDWARE: None in the chest. UPPER ABDOMEN: Atrophic changes is seen in the left kidney more than the right. Small cortical cysts are present. THYROID AND OTHER SOFT TISSUES: Dense calcifications are seen in the region of the left lobe of the t hyroid gland. BONES: There appear to be old rib fractures on the right. 3D MIPS: Confirm above findings. OTHER: No other significant finding. IMPRESSION: 1. There is no evidence of pulmonary embolus. 2. Atrophy of the kidneys. Small cortical cysts are present. 3. Possible calcified left thyroid nodule. COMMENT: Quality ID # [id number]: Final reports with documentation of one or more dose reduction techniques (e.g., Automated exposure control, adjustment of the mA and/or kV according to patient size, use of iterative reconstruction technique) TECHNICAL DOCUMENTATION: JOB ID: [id number] [employer]- All Rights Reserved Reading location - IP/workstation name: [email or web address]
[2017-09-01 15:58] VITALS: BP 151/75
--- NOTE | 2017-09-01 21:54 | EKG REPORT ---
SEVERITY:- BORDERLINE ECG - SINUS RHYTHM LVH BY VOLTAGE : Confirmed by: Phil Klein 01-Sep-2017 21:53:36
== END 2017-09-01 17:10 | disposition home or self-care (01) ==
LOC: ER 10:04
DX: S40.022A Contusion of left upper arm, initial encounter (principal); W10.9XXA Fall (on) (from) unspecified stairs and steps, initial encounter; Q61.02 Congenital multiple renal cysts; N64.4 Mastodynia; M54.89 Other dorsalgia; R07.1 Chest pain on breathing; I10 Essential (primary) hypertension; G89.29 Other chronic pain; Z79.891 Long term (current) use of opiate analgesic; I25.10 Atherosclerotic heart disease of native coronary artery without angina pectoris; E04.1 Nontoxic single thyroid nodule; R29.6 Repeated falls; Z79.82 Long term (current) use of aspirin; Z88.1 Allergy status to other antibiotic agents; Z88.0 Allergy status to penicillin; Z88.5 Allergy status to narcotic agent; Z88.8 Allergy status to other drugs, medicaments and biological substances
CPT/HCPCS: 36415; 71046; 71275; 80053; 81001; 82550; 82553; 83735; 84484; 85025; 93005; 93010; 99284

== ENCOUNTER → 2018-08-14 | Outpatient (CLI) | payer MEDICARE, OTHER ==
--- NOTE | 2018-08-14 11:58 | WOMENS IMAGING REPORT ---
EXAM DESCRIPTION: BONE DENSITY HIP/SPINE COMPLETED DATE/TIME: 08/14/2018 10:57 am REASON FOR STUDY: Z78.0; ASYMPTOMATIC MENOPAUSAL STATE Z78.0 ASYMPTOMATIC MENOPAUSAL STATE COMPARISON: None. TECHNIQUE: Dual-Energy X-ray Absorptiometry (DEXA) of the AP Spine and Hip. LIMITATIONS: None. FINDINGS: LEFT FOREARM: The bone mineral density (BMD) measured from L1-L4 in the AP projection correlates with a T-score of -3.7, which is osteoporosis as defined by the World Health Organization. B MD change from previous e xamination dated 12/22/2016 is -22.2%. HIP: The bone mineral density (BMD) measured in the left hip correlates with a T-score of -1.8, which is o steopenia as defined by the World Health Organization. B MD change since the previous examination da steve 08/16/2012 is -2.1%. IMPRESSION: 1. LEFT FOREARM: OSTEOPOROSIS. 2. HIP: OSTEOPENIA. COMMENT: The World Health Organization defines low BMD as follows: T-score: Normal: Greater than -1.0 Osteopenia: Between -1.0 and -2.5 Osteoporosis: Less than -2.5 without fractures Established osteoporosis: Less than -2.5 with fractures In general, you may wish to consider: Diagnosis Treatment Follow-up DEXA Normal BMD Prevention 2-3 years Osteopenia Prevention/Therapy 1-2 years Osteoporosis Therapy Yearly TECHNICAL DOCUMENTATION: JOB ID: [id number] [employer]- All Rights Reserved Reading location - IP/workstation name: [email or web address]
== END ==
LOC: WI 10:29
PROVIDERS: ATTEND Physician Assistant
DX: Z78.0 Asymptomatic menopausal state (principal); M81.0 Age-related osteoporosis without current pathological fracture; M85.88 Other specified disorders of bone density and structure, other site
CPT/HCPCS: 77080

== ENCOUNTER 2019-12-31 00:16 | Emergency (ER) | payer MEDICARE ==
[2019-12-31] MEDS ORDERED: MINERAL OIL 30 ML UDCUP PR ONE (03:27)
[2019-12-31] MEDS ORDERED: ONDANSETRON HCL INJ/PF 4 MG/2 ML SDV IV ONE (03:28)
[2019-12-31 04:00] LABS: ABSOLUTE BASOPHILS # (AUTO) 0.2 10^3/uL (0.0-0.2); ABSOLUTE EOSINOPHILS # (AUTO) 0.1 10^3/uL (0.0-0.6); ABSOLUTE LYMPHOCYTES (AUTO) 1.3 10^3/uL (0.5-4.7); ABSOLUTE MONOCYTES (AUTO) 0.4 10^3/uL (0.1-1.4); ABSOLUTE NEUT (AUTO) 10.8 10^3/uL (1.7-8.2); BASOPHILS % (AUTO) 1.3 % (0-2); EOSINOPHILS % (AUTO) 0.8 % (0-6); HEMATOCRIT 39.2 % (36.0-47.0); HEMOGLOBIN 12.9 g/dL (12.0-15.5); MEAN CORPUSCULAR HEMOGLOBIN 32.1 pg (27.0-33.4); MEAN CORPUSCULAR VOLUME 97 fl (80-97); MONOCYTES % (AUTO) 2.9 % (3-13); PLATELET COUNT 260 10^3/uL (150-450); RED BLOOD COUNT 4.03 10^6/uL (3.72-5.28); RED CELL DISTRIBUTION WIDTH 15.8 % (11.5-14.0); TOTAL CELLS COUNTED % (AUTO) 100 %; WHITE BLOOD COUNT 12.7 10^3/uL (4.0-10.5)
[2019-12-31 04:20] LABS: INTERNATIONAL RATION (INR) 1.35; PROTHROMBIN TIME 16.8 SEC (11.4-15.4)
[2019-12-31 04:21] LABS: PARTIAL THROMBOPLASTIN TIME 29.1 SEC (23.5-35.8)
[2019-12-31 04:22] LABS: ALBUMIN 3.8 g/dL (3.5-5.0); ALKALINE PHOSPHATASE 95 U/L (38-126); ANION GAP 8 (5-19); ASPARTATE AMINO TRANSFERASE 37 U/L (14-36); BILIRUBIN,DIRECT 0.1 mg/dL (0.0-0.4); BILIRUBIN,TOTAL 0.9 mg/dL (0.2-1.3); BLOOD UREA NITROGEN 18 mg/dL (7-20); CALCIUM 9.6 mg/dL (8.4-10.2); CARBON DIOXIDE 32 mmol/L (22-30); CHLORIDE 101 mmol/L (98-107); GLUCOSE 183 mg/dL (75-110); POTASSIUM 3.3 mmol/L (3.6-5.0); TOTAL PROTEIN 6.6 g/dL (6.3-8.2)
--- NOTE | 2019-12-31 05:14 | ER Document Report ---
Entered by RUBEN PLAZA SCRIBE 12/31/19 0329 Acting as scribe for:PHONG REYES IV, MD ED GI/ - General Chief Complaint: Abdominal Pain Stated Complaint: RECTAL BLEEDING Time Seen by Provider: 12/31/19 03:15 Primary Care Provider: LEBRON PIERRE PA-C [Primary Care Provider] - Follow up as needed Mode of Arrival: Wheelchair Information source: Patient Notes: This 79 year old female patient presents to the ED today with complaints of rectal bleeding related to hemorrhoids. Patient states that she has been constipated for the past x6-7 days and tried an enema prior to arrival without resolve. She is now reporting abdominal pain that started yesterday evening, nausea, and urinary retention. TRAVEL OUTSIDE OF THE [place] IN LAST 30 DAYS: No - Related Data Allergies/Adverse Reactions: sulfamethoxazole [From Bactrim] Allergy (Severe, Verified 01/12/17 13:10) HIVES, RASH trimethoprim [From Bactrim] Allergy (Severe, Verified 01/12/17 13:10) HIVES, RASH amoxicillin [From Augmentin] Allergy (Intermediate, Verified 01/12/17 13:10) Hives amoxicillin trihydrate [From Augmentin] Allergy (Intermediate, Verified 01/12/17 13:10) Nausea clavulanic acid [From Augmentin] Allergy (Intermediate, Verified 01/12/17 13:10) Hives doxycycline [Doxycycline] Allergy (Intermediate, Verified 01/12/17 13:10) HIVES, RASHES levofloxacin [From Levaquin] Allergy (Intermediate, Verified 01/12/17 13:10) Hives morphine [Morphine] Allergy (Intermediate, Verified 01/12/17 13:10) Hallucinations Potassium Clavulanate * [From Augmentin] Allergy (Intermediate, Verified 01/12/17 13:10) Nausea NSAIDS (Non-Steroidal Anti-Inflamma [Nsaids] Allergy (Mild, Verified 01/12/17 13:10) Hepatic dysfunction erythromycin lactobionate [From Erythrocin] Adverse Reaction (Severe, Verified 01/12/17 13:10) FLU LIKE SYMPTOMS imipramine HCl [From Tofranil] Adverse Reaction (Intermediate, Verified 01/12/17 13:10) HEARTRACE codeine [Codeine] Adverse Reaction (Mild, Verified 01/12/17 13:10) "DOESN'T FEEL RIGHT" Past Medical History - General Information source: Patient, [facility] Records - Social History Smoking Status: Former Smoker Cigarette use (# per day): No Chew tobacco use (# tins/day): No Smoking Education Provided: No Family History: Reviewed & Not Pertinent Patient has suicidal ideation: No Patient has homicidal ideation: No - Past Medical History Cardiac Medical History: Reports: Hx Atrial Fibrillation, Hx Coronary Artery Disease, Hx Hypertension Endocrine Medical History: Reports: Hx Diabetes Mellitus Type 2 - "borderline" no medication GI Medical History: Reports: Hx Diverticulitis, Hx Gastroesophageal Reflux Disease Musculoskeletal Medical History: Reports Hx Arthritis - GENERALIZED Past Surgical History: Reports: Hx Appendectomy, Hx Kidney (Renal Surgery), Hx Orthopedic Surgery - back, rotator, Hx Tonsillectomy, Hx Tubal Ligation - Immunizations Hx Diphtheria, Pertussis, Tetanus Vaccination: Yes Review of Systems - Review of Systems Constitutional: No symptoms reported EENT: No symptoms reported Cardiovascular: No symptoms reported Respiratory: No symptoms reported Gastrointestinal: See HPI, Abdominal pain, Nausea, Constipation, Rectal bleeding Genitourinary: See HPI, Retention Female Genitourinary: No symptoms reported Musculoskeletal: No symptoms reported Skin: No symptoms reported Hematologic/Lymphatic: No symptoms reported Neurological/Psychological: No symptoms reported -: Yes All other systems reviewed and negative Physical Exam - Vital signs Vitals: Temp Pulse Resp BP Pulse Ox 98.4 F 108 H 19 129/104 H 100 12/31/19 00:34 12/31/19 00:34 12/31/19 00:34 12/31/19 00:34 12/31/19 00:34 - General General appearance: Alert In distress: None - HEENT Head: Normocephalic, Atraumatic Eyes: Normal Pupils: PERRL - Respiratory Respiratory status: No respiratory distress Chest status: Nontender Breath sounds: Normal Chest palpation: Normal - Cardiovascular Rhythm: Regular Heart sounds: Normal auscultation Murmur: No Friction rub: No Gallop: None auscultated - Abdominal Inspection: Normal Distension: Distended Bowel sounds: Normal Tenderness: Nontender - Abdomen soft Organomegaly: No organomegaly - Rectal Stool: Other - Liquid appearing stool that was peeking out of anus Hemorrhoids: External - Several large external hemorrhoids - Back Back: Normal, Nontender - Extremities General upper extremity: Normal inspection General lower extremity: Normal inspection - Neurological Neuro grossly intact: Yes Orientation: AAOx4 Antonette Coma Scale Eye Opening: Spontaneous Barnhart Coma Scale Verbal: Oriented Barnhart Coma Scale Motor: Obeys Commands Antonette Coma Scale Total: 15 - Psychological Associated symptoms: Normal affect, Normal mood - Skin Skin Temperature: Warm Skin Moisture: Dry Skin Color: Normal Course - Re-evaluation Re-evalutation: 12/31/19 05:22 Enema performed in emergency department with positive results. Results of ED MSE discussed with patient. All questions were answered prior to discharge. Emergency signs and symptoms, reasons to return to the emergency department discussed with patient. - Vital Signs Vital signs: Temp Pulse Resp BP Pulse Ox 98.5 F 98 18 150/72 H 97 12/31/19 05:17 12/31/19 05:17 12/31/19 05:17 12/31/19 05:17 12/31/19 05:17 - Laboratory Result Diagrams: 12/31/19 03:40 12/31/19 03:40 Laboratory results interpreted by me: 12/31/19 12/31/19 12/31/19 03:40 03:40 03:40 WBC 12.7 H RDW 15.8 H Lymph % (Auto) 10.0 L [place] % (Auto) 2.9 L Absolute Neuts (auto) 10.8 H Seg Neutrophils % 85.0 H PT 16.8 H Potassium 3.3 L Carbon Dioxide 32 H Est GFR ( Amer) 52 L Est GFR (MDRD) Non-Af 43 L Glucose 183 H AST 37 H Discharge - Discharge Clinical Impression: External hemorrhoids, Encopresis Constipation Qualifiers: Constipation type: unspecified constipation type Qualified Code(s): K59.00 - Constipation, unspecified Condition: Stable Disposition: HOME, SELF-CARE Additional Instructions: Return to the Emergency Department without delay if any worse. HOME CARE INSTRUCTIONS & INFORMATION: Thank you for choosing us for your medica l needs. We hope you're satisfied with the care you received. After you leave, you must properly care for your problem and, at the same time, observe its progress. Any condition can change. Some illnesses can change rapidly over hours or days. If your condition worsens, return to the Emergency Department or see your physician promptly. ABOUT YOUR X-RAYS AND EKG'S: If you had an EKG or X-rays taken, they have been read by the Emergency Physician. The X-rays and EKG's will also be read by a Radiologist or Project Inspector within 24 hours. If discrepancies are noted, you will be notified by telephone. Please be certain the ED has a correct telephone number & address where you can be reached. Also, realize that some fractures or abnormalities do not show up on initial X-rays. If your symptoms continue, see your physician. ABOUT YOUR LABORATORY TEST: If you had laboratory tests, the results have been reviewed by the Emergency Physician. Some test results (for example cultures) may not be available for several days. You will be contacted if any test result shows you need additional treatment. Please be certain the ED has a correct telephone number and address where you can be reached. ABOUT YOUR MEDICATIONS: You will receive instructions on how to take your medicine on the prescription label you receive. Additional information may be provided by the Pharmacy. If you have questions afterwards, call the ED for clarification or further instructions. Some prescribed medications may cause drowsiness. Do not perform tasks such as driving a car or operating machinery without consulting your Pharmacist. If you feel you need a refill of pain medication, your condition will need re-evaluation. Please do not call for a refill of any medication. ABOUT YOUR SIGNATURE: Signature of this document acknowledges to followin. Understanding that you received emergency treatment and that you may be released before al medical problems are known or treated. Please be certain the ED has a correct phone number & address where you can be reached. 2. Acknowledgement that you will arrange for follow-up care as recommended. 3. Authorization for the Emergency Physician to provide information to your follow-up Physician in order to maximize your care. AT ANY TIME, IF YOUR SYMPTOMS CHANGE SIGNIFICANTLY OR WORSEN OR YOU DEVELOP NEW SYMPTOMS, RETURN TO THE EMERGENCY DEPARTMENT IMMEDIATELY FOR RE-EVALUATION. OUR GOAL IS TO PROVIDE EXCELLENT MEDICAL CARE! WE HOPE THAT WE HAVE MET YOUR EXPECTATIONS DURING YOUR EMERGENCY DEPARTMENT VISIT AND THAT YOU FEEL YOU HAVE RECEIVED EXCELLENT CARE! Constipation Constipation is a common problem. It is especially likely as you get older. Constipation is a common cause of abdominal pain, but sometimes causes no symptoms at all. Causes of constipation include certain medications, dehydration, diets, inactivity, and low-fiber intake. Rarely, it can be a symptom of underlying disease. The physician has evaluated you for this. Avoid constipation by eating a diet high in fiber, fruits, and vegetables. Drink plenty of liquids. Get regular exercise. If possible, avoid constipating medicines like narcotic pain medication. Some vitamin tablets can cause constipation. Stool softeners may be needed for difficult cases. An excellent stool softener is Konsyl which is available at [employer], and [employer]. Just add a teaspoon to a glass of pineapple or orange juice daily or twice a day if needed. Laxatives are useful for occasional constipation. You should use them only when necessary. Too-frequent use can make your bowels dependent on them. Some over the counter laxatives available without prescription are: Milk of Magnesia, 1-2 tablespoons twice a day Dulcolax, 5 mg pill or 10 mg suppository. Citrate of Magnesia, 4-5 ounces a day for a day or two For acute constipation, Fleet's Enemas and Dulcolax suppositories are helpful. Chronic, detention use of laxatives or enemas is not a good idea. Your bowel may become dependant on them. You do not need to have a bowel movement every day. Many people do fine with a bowel movement every three or four days. You should call your doctor or return for re-evaluation if you pass blood in the stool, or if you develop fever or increasing abdominal pain. Hemorrhoids You have hemorrhoids. These are formed by enlargement of veins around the anus. The cause is increased pressure in the veins, from or straining at bowel movements. Hemorrhoids often cause itching and bleeding with bowel movements. When a hemorrhoid becomes clotted, severe pain and swelling result. Soothing creams and suppositories are often prescribed. Warm sitz-baths may also decrease pain, swelling, and itching. Eat a high-fiber diet. Stool softeners such as Metamucil will help. Keep the area very clean. Medicated cleansing pads (such as Tucks) are useful after bowel movements. A hose-mounted shower unit (like a shower massag er at low water pressure) can be used to clean around tender hemorrhoid tags. You should call the doctor or return if you develop fever, increasing pain, or an enlarging mass around the anus, or if you simply fail to improve with treatment. Referrals: LEBRON PIERRE PA-C [Primary Care Provider] - Follow up as needed I personally performed the services described in the documentation, reviewed and edited the documentation which was dictated to the scribe in my presence, and it accurately records my words and actions.
[2019-12-31 05:18] VITALS: BP 150/72
[2019-12-31] MEDS ORDERED: MAGNESIUM CITRATE 296 ML BOTTLE PO ONE (05:30)
== END 2019-12-31 07:37 | disposition home or self-care (01) ==
LOC: ER 00:16
DX: R15.9 Full incontinence of feces (principal); K62.5 Hemorrhage of anus and rectum; K64.4 Residual hemorrhoidal skin tags; K59.00 Constipation, unspecified; R10.9 Unspecified abdominal pain; Z88.3 Allergy status to other anti-infective agents
CPT/HCPCS: 99283; 96374; 86900; 86901; 36415; 86850; 85025; 85610; 85730; 80053; A9270 ×2; J2405; J3490

== ENCOUNTER 2020-01-05 16:50 | Emergency (ER) | payer MEDICARE, OTHER ==
--- NOTE | 2020-01-05 17:38 | RADIOLOGY REPORT (SQ) ---
EXAM DESCRIPTION: CHEST SINGLE VIEW IMAGES COMPLETED DATE/TIME: 01/05/2020 4:18 pm REASON FOR STUDY: bed 15 r/o stroke COMPARISON: 09/01/2017. EXAM PARAMETERS: NUMBER OF VIEWS: One view. TECHNIQUE: Single frontal radiographic view of the chest acquired. RADIATION DOSE: NA LIMITATIONS: None. FINDINGS: LUNGS AND PLEURA: No opacities, masses or pneumothorax. No pleural effusion. MEDIASTINUM AND HILAR STRUCTURES: No masses. Contour normal. HEART AND VASCULAR STRUCTURES: Heart normal in size. Normal vasculature. BONES: Chronic healed right posterior rib fractures, stable. HARDWARE: Loop recorder is noted. OTHER: No other significant finding. IMPRESSION: NO ACUTE RADIOGRAPHIC FINDING IN THE CHEST. TECHNICAL DOCUMENTATION: JOB ID: [id number] 2010 [employer]- All Rights Reserved Reading location - IP/workstation name: [email or web address]
[2020-01-05 17:57] LABS: ABSOLUTE BASOPHILS # (AUTO) 0.1 10^3/uL (0.0-0.2); ABSOLUTE EOSINOPHILS # (AUTO) 0.1 10^3/uL (0.0-0.6); ABSOLUTE LYMPHOCYTES (AUTO) 0.9 10^3/uL (0.5-4.7); ABSOLUTE MONOCYTES (AUTO) 0.5 10^3/uL (0.1-1.4); ABSOLUTE NEUT (AUTO) 4.6 10^3/uL (1.7-8.2); EOSINOPHILS % (AUTO) 1.8 % (0-6); HEMATOCRIT 35.6 % (36.0-47.0); HEMOGLOBIN 11.7 g/dL (12.0-15.5); INTERNATIONAL RATION (INR) 1.36; LYMPHOCYTES % (AUTO) 14.6 % (13-45); MEAN CORPUSCULAR HEMOGLOBIN 32.5 pg (27.0-33.4); MEAN CORPUSCULAR VOLUME 99 fl (80-97); MONOCYTES % (AUTO) 8.8 % (3-13); PLATELET COUNT 254 10^3/uL (150-450); PROTHROMBIN TIME 16.9 SEC (11.4-15.4); RED BLOOD COUNT 3.61 10^6/uL (3.72-5.28); RED CELL DISTRIBUTION WIDTH 16.1 % (11.5-14.0); SEGMENTED NEUTROPHILS % (AUTO) 73.8 % (42-78); TOTAL CELLS COUNTED % (AUTO) 100 %; WHITE BLOOD COUNT 6.2 10^3/uL (4.0-10.5)
[2020-01-05 17:58] LABS: PARTIAL THROMBOPLASTIN TIME 30.3 SEC (23.5-35.8)
[2020-01-05 18:05] LABS: APPEARANCE,URINE CLEAR; BILIRUBIN,URINE NEGATIVE (NEGATIVE); COLOR,URINE YELLOW; GLUCOSE, URINE NEGATIVE (NEGATIVE); KETONES,URINE NEGATIVE (NEGATIVE); LEUKOCYTE ESTERASE,URINE NEGATIVE (NEGATIVE); NITRITE,URINE NEGATIVE (NEGATIVE); PROTEIN,URINE 30 mg/dL (NEGATIVE)
[2020-01-05 18:19] LABS: ALBUMIN 3.4 g/dL (3.5-5.0); ALKALINE PHOSPHATASE 75 U/L (38-126); ANION GAP 6 (5-19); ASPARTATE AMINO TRANSFERASE 38 U/L (14-36); BILIRUBIN,DIRECT 0.1 mg/dL (0.0-0.4); BILIRUBIN,TOTAL 0.7 mg/dL (0.2-1.3); BLOOD UREA NITROGEN 19 mg/dL (7-20); CALCIUM 9.4 mg/dL (8.4-10.2); CARBON DIOXIDE 31 mmol/L (22-30); CHLORIDE 103 mmol/L (98-107); GLUCOSE 173 mg/dL (75-110); POTASSIUM 4.4 mmol/L (3.6-5.0); TOTAL PROTEIN 6.1 g/dL (6.3-8.2)
--- NOTE | 2020-01-05 19:17 | RADIOLOGY REPORT (SQ) ---
EXAM DESCRIPTION: CT HEAD WITHOUT IMAGES COMPLETED DATE/TIME: 01/05/2020 5:35 pm REASON FOR STUDY: bed 15 r/o stroke COMPARISON: None. TECHNIQUE: Axial images acquired through the brain without intravenous contrast. Images reviewed wi th bone, brain and subdural windows. Additional sagittal and coronal reconstructions were generated. Images stored on PACS. All CT scanners at this facility use dose modulation, iterative reconstruction, and/or weight based d osing when appropriate to reduce radiation dose to as low as reasonably achievable (ALARA). [facility]: Dose Right [facility]: CareDose [facility]: Dose Right [facility]: Teradose 4D [facility]: Smart [place] RADIATION DOSE: CT Rad equipment meets quality standard of care and radiation dose reduction techniq ues were employed. CTDIvol: 53.2 mGy. DLP: 964 mGy-cm. mGy. LIMITATIONS: None. FINDINGS: VENTRICLES: Normal size and contour. CEREBRUM: No masses. No hemorrhage. No midline shift. No evidence for acute infarction. Normal gra y-white matter differentiation. There is intracranial atherosclerosis. CEREBELLUM: No masses. No hemorrhage. No alteration of density. No evidence for acute infarction. EXTRAAXIAL SPACES: No fluid collections. No masses. ORBITS AND GLOBE: No intra- or extraconal masses. Normal contour of globe without masses. CALVARIUM: No fracture. PARANASAL SINUSES: No fluid or mucosal thickening. SOFT TISSUES: No mass or hematoma. OTHER: No other significant finding. IMPRESSION: No acute intracranial hemorrhage, mass, or evidence of acute ischemia. EVIDENCE OF ACUTE STROKE: NO. COMMENT: Quality ID # [id number]: Final reports with documentation of one or more dose reduction techniques (e.g., Automated exposure control, adjustment of the mA and/or kV according to patient size, use of iterative reconstruction technique) TECHNICAL DOCUMENTATION: JOB ID: [id number] 2010 [employer]- All Rights Reserved Reading location - IP/workstation name: [email or web address]
--- NOTE | 2020-01-05 19:59 | ER Document Report ---
ED General - General Chief Complaint: Altered Mental Status Stated Complaint: POSSIBLE STROKE/CONSTIPATION Time Seen by Provider: 01/05/20 17:41 Primary Care Provider: LEBRON COMER PA-C [Primary Care Provider] - Follow up as needed TRAVEL OUTSIDE OF THE [place] IN LAST 30 DAYS: No - HPI Notes: Patient is a 79-year-old female who presents to the emergency department for evaluation of intermittent bouts of confusion. She states is been going on for several days intermittently. She states she has times where she "feels like she might have moved houses but she has not." She just states that she feels more confused than normal, but it only happens occasionally. She moved in with her daughter permanently in March of last year. The patient denies any pain this different from her chronic and normal. She said no fevers or chills. She does have some generalized weakness, ambulates with a walker. She fell on Tuesday, she was concerned she may have had a stroke at that point. Otherwise she states has been taking her medications as prescribed. She has been "pushing fluids", and is urinating normally. She has been eating and drinking normally. Normal appetite. - Related Data Allergies/Adverse Reactions: sulfamethoxazole [From Bactrim] Allergy (Severe, Verified 01/12/17 13:10) HIVES, RASH trimethoprim [From Bactrim] Allergy (Severe, Verified 01/12/17 13:10) HIVES, RASH amoxicillin [From Augmentin] Allergy (Intermediate, Verified 01/12/17 13:10) Hives amoxicillin trihydrate [From Augmentin] Allergy (Intermediate, Verified 01/12/17 13:10) Nausea clavulanic acid [From Augmentin] Allergy (Intermediate, Verified 01/12/17 13:10) Hives doxycycline [Doxycycline] Allergy (Intermediate, Verified 01/12/17 13:10) HIVES, RASHES levofloxacin [From Levaquin] Allergy (Intermediate, Verified 01/12/17 13:10) Hives morphine [Morphine] Allergy (Intermediate, Verified 01/12/17 13:10) Hallucinations Potassium Clavulanate * [From Augmentin] Allergy (Intermediate, Verified 01/12/17 13:10) Nausea NSAIDS (Non-Steroidal Anti-Inflamma [Nsaids] Allergy (Mild, Verified 01/12/17 13:10) Hepatic dysfunction erythromycin lactobionate [From Erythrocin] Adverse Reaction (Severe, Verified 01/12/17 13:10) FLU LIKE SYMPTOMS imipramine HCl [From Tofranil] Adverse Reaction (Intermediate, Verified 01/12/17 13:10) HEARTRACE codeine [Codeine] Adverse Reaction (Mild, Verified 01/12/17 13:10) "DOESN'T FEEL RIGHT" Home Medications: Patient is unsure of her medications at this time. Pharmacy history reveals prescriptions for Eliquis, Protonix, Toprol, Percocet, tizanidine, Norvasc, Lyrica Past Medical History - General Information source: Patient - Social History Smoking Status: Former Smoker Family History: Reviewed & Not Pertinent - Past Medical History Cardiac Medical History: Reports: Hx Atrial Fibrillation, Hx Coronary Artery Disease, Hx Hypertension Denies: Hx Heart Attack Pulmonary Medical History: Denies: Hx Asthma, Hx Bronchitis, Hx COPD, Hx Pneumonia Neurological Medical History: Denies: Hx Cerebrovascular Accident, Hx Seizures Endocrine Medical History: Reports: Hx Diabetes Mellitus Type 2 - "borderline" no medication Renal/ Medical History: Denies: Hx Peritoneal Dialysis GI Medical History: Reports: Hx Diverticulitis, Hx Gastroesophageal Reflux Disease Musculoskeletal Medical History: Reports Hx Arthritis - GENERALIZED Past Surgical History: Reports: Hx Appendectomy, Hx Kidney (Renal Surgery), Hx Orthopedic Surgery - back, rotator, Hx Tonsillectomy, Hx Tubal Ligation. Denies: Hx Hysterectomy - Immunizations Hx Diphtheria, Pertussis, Tetanus Vaccination: Yes Review of Systems - Review of Systems Constitutional: See HPI Neurological/Psychological: See HPI -: Yes All other systems reviewed and negative Physical Exam - Vital signs Vitals: Pulse Resp BP Pulse Ox 53 L 22 H 112/63 95 01/05/20 17:14 01/05/20 17:14 01/05/20 17:14 01/05/20 17:14 - Notes Notes: Vital signs reviewed, please refer to chart. Head is normocephalic, atraumatic. Pupils equal round, reactive to light. Neck is supple without meningismus. Heart reveals regular rate and rhythm. Lungs are clear to auscultation bilaterally. Abdomen is soft, nontender, normoactive bowel sounds throughout. Extremities without cyanosis, clubbing. Posterior calves are nontender. Peripheral pulses are equal. Skin is warm and dry. Patient is awake, alert. Initially she is disoriented to time, tells me it is November 2019, but corrects herself and states it is December. Cranial nerves II - XII are grossly intact without focal neurological deficits. Strength is plus 5 out of 5 bilateral upper and lower extremities. Sensation is intact. Reflexes symmetrical. Intact [id number], rapid alternating movements, [id number]. Course - Re-evaluation Re-evalutation: 01/05/20 20:05 Patient presents to the emergency department for evaluation. She states she is been having intermittent confusion, she did a fall on Tuesday. She is on Eliquis. Laboratory investigations and imaging ordered. Evaluation here failed to reveal any significant neurological deficits. Laboratory investigations and imaging are unremarkable. Patient has remained stable. I am unsure as to the cause of this patient's intermittent altered mental status, but I do not see any signs of stroke, metabolic disturbance, or infection that could be causing this intermittent confusion. The patient has no signs of confusion or neurological deficit here. I will have her follow-up with Lebron comer. She is to return the emergency department with worsening or new concerning symptoms of any sort. - Vital Signs Vital signs: Temp Pulse Resp BP Pulse Ox 98.3 F 75 20 160/95 H 96 01/05/20 19:29 01/05/20 18:00 01/05/20 20:01 01/05/20 20:01 01/05/20 20:01 - Laboratory Result Diagrams: 01/05/20 17:30 01/05/20 17:30 Laboratory results interpreted by me: 01/05/20 01/05/20 01/05/20 17:30 17:30 17:30 RBC 3.61 L Hgb 11.7 L Hct 35.6 L MCV 99 H RDW 16.1 H PT 16.9 H Carbon Dioxide 31 H Est GFR (MDRD) Non-Af 50 L Glucose 173 H AST 38 H Total Protein 6.1 L Albumin 3.4 L Urine Protein Urine Urobilinogen 01/05/20 17:30 RBC Hgb Hct MCV RDW PT Carbon Dioxide Est GFR (MDRD) Non-Af Glucose AST Total Protein Albumin Urine Protein 30 H Urine Urobilinogen 4.0 H - Diagnostic Test Radiology reviewed: Reports reviewed Radiology results interpreted by me: 01/05/20 20:15 Chest X-Ray 01/05/20 16:58 IMPRESSION: NO ACUTE RADIOGRAPHIC FINDING IN THE CHEST. Head CT 01/05/20 16:58 IMPRESSION: No acute intracranial hemorrhage, mass, or evidence of acute ischemia. EVIDENCE OF ACUTE STROKE: NO. - EKG Interpretation by Me Additional EKG results interpreted by me: 01/05/20 20:17 Sinus mechanism with a rate of 75 bpm. Normal axis and intervals. No acute ST changes concerning for ischemia or infarction. Discharge - Discharge Clinical Impression: Altered mental status, unspecified Condition: Stable Disposition: HOME, SELF-CARE Instructions: Altered Mental Status ([facility]) Additional Instructions: No clear cause was found today for the intermittent confusion you are describing. Please follow-up closely with your primary care provider this week. Continue your home medications as prescribed. Return to the emergency department with worsening or new concerning symptoms of any sort. Referrals: LEBRON COMER PA-C [Primary Care Provider] - Follow up as needed
[2020-01-05 20:16] VITALS: BP 160/95
--- NOTE | 2020-01-05 22:39 | EKG REPORT ---
SEVERITY:- BORDERLINE ECG - SINUS RHYTHM BORDERLINE T ABNORMALITIES, ANTERIOR LEADS : Confirmed by: Addy Garcia MD 05-Jan-2020 22:38:45
== END 2020-01-05 20:26 | disposition home or self-care (01) ==
LOC: ER 16:50
DX: R41.0 Disorientation, unspecified (principal); R53.1 Weakness; G89.29 Other chronic pain; I48.91 Unspecified atrial fibrillation; I25.10 Atherosclerotic heart disease of native coronary artery without angina pectoris; I10 Essential (primary) hypertension; K21.9 Gastro-esophageal reflux disease without esophagitis; Z79.01 Long term (current) use of anticoagulants; Z79.899 Other long term (current) drug therapy; Z79.891 Long term (current) use of opiate analgesic; Z91.81 History of falling; Z87.891 Personal history of nicotine dependence; Z88.1 Allergy status to other antibiotic agents; Z88.0 Allergy status to penicillin
CPT/HCPCS: 36415; 70450; 71045; 80053; 81001; 84484; 85025; 85610; 85730; 93005; 93010; 99285